=== PATIENT | male | born 1960 | race Two or more races ===

== ENCOUNTER 2019-01-01 16:00 | Emergency (ER) | payer OTHER ==
[~2019-01-01] VITALS: Ht 182.9 cm; Wt 117.9 kg
[2019-01-01] MEDS ORDERED: MORGIDOX100 MG PO (16:04)
[2019-01-01] MEDS ORDERED: ZESTRIL10 M1 PO (16:07)
[2019-01-01] MEDS ORDERED: CALAN80 MG PO (16:08)
[2019-01-01] MEDS ORDERED: LIVALO2 MG PO (16:09)
== END 2019-01-01 18:39 | disposition home or self-care (01) ==
LOC: ER 16:00
DX: L03.113 Cellulitis of right upper limb (principal)